=== PATIENT | male | born 1965 | race Caucasian/White ===

== ENCOUNTER 2016-05-06 06:51 | Day surgery (SDC) | payer OTHER ==
[~2016-05-06] VITALS: Ht 193 cm; Wt 126.6 kg
[2016-05-06] MEDS ORDERED: CELEXA40 MG PO (07:03)
[2016-05-06] MEDS ORDERED: XANAX XR1 M1 PO (07:04)
[2016-05-06] MEDS ORDERED: CLARITIN 1010 MG/TAB PO (07:04)
[2016-05-06] MEDS ORDERED: PRINIVIL10 MG PO (07:04)
[2016-05-06] MEDS ORDERED: MULTI VITAMINS1 TAB PO (07:04)
[2016-05-06 07:29] VITALS: BP 112/79; PULSE 70; TEMP 98.2
[2016-05-06 08:50] VITALS: BP 129/82; PULSE 72; TEMP 97.7
[2016-05-06 09:05] VITALS: BP 136/86; PULSE 65
[2016-05-06 09:20] VITALS: BP 131/80; PULSE 66
[2016-05-06 10:22] VITALS: BP 128/86; PULSE 68
== END 2016-05-06 09:40 | disposition home or self-care (01) ==
LOC: SDCO 06:51
DX: Z12.11 Encounter for screening for malignant neoplasm of colon (principal); K64.0 First degree hemorrhoids
CPT/HCPCS: OP; J2250; J3010; J7030

== ENCOUNTER → 2019-04-27 | Outpatient (CLI) | payer BC ==
[~2019-04-27] MED LIST: CELEXA40 MG PO; CLARITIN 1010 MG/TAB PO; MULTI VITAMINS1 TAB PO; PRINIVIL10 MG PO; XANAX XR1 M1 PO
== END ==
LOC: COL.RAD 07:08
DX: R74.8 Abnormal levels of other serum enzymes (principal); K76.0 Fatty (change of) liver, not elsewhere classified

== ENCOUNTER 2020-09-11 10:39 | Emergency (ER) | payer BC ==
[~2020-09-11] VITALS: Ht 195.6 cm; Wt 145.5 kg
[2020-09-11 10:46] VITALS: TEMP 98.1
[2020-09-11] MEDS ORDERED: LIPITOR20 MG PO (11:05)
[2020-09-11 11:15] LABS: ALANINE AMINOTRANSFERASE 48 U/L (4-49); ALBUMIN 4.6 gm/dL (3.5-5.0); ALKALINE PHOSPHATASE 107 U/L (50-136); ANION GAP 8 mmol/L (7-16); AST,SGOT 50 U/L (15-37); BILIRUBIN,TOTAL 0.9 mg/dL (0.0-1.0); BLOOD UREA NITROGEN 13 mg/dL (9-20); CALCIUM 10.1 mg/dL (8.4-10.2); CARBON DIOXIDE 25 mmol/L (22-30); CHLORIDE 104 mmol/L (98-107); CREATININE, serum 1.09 (0.66-1.25); GLUCOSE 154 mg/dL (74-106); POTASSIUM 4.4 mmol/L (3.4-5.0); SODIUM 138 mmol/L (137-145); TOTAL PROTEIN 8.1 gm/dL (6.4-8.2)
[2020-09-11 11:20] LABS: BASO # 0.1 (0.0-0.2); BASO % 0.5 % (0.0-2.0); EOS # 0.2 (0.0-0.7); EOS % 2.1 % (0-4.0); GRAN # 7.4 (1.4-6.5); HEMATOCRIT 47.2 % (42.0-52.0); HEMOGLOBIN 15.9 g/dl (13.5-18.0); LYMPH % 19.7 % (20.0-51.0); MEAN CELL VOLUME 93 fl (80.0-100.0); MEAN CORPUSCULAR HEMOGLOBIN 31 pg (27.0-31.0); MEAN CORPUSCULAR HGB CONC 34 g/dl (33.0-37.0); MEAN PLATELET VOLUME 8.7 fl (7.4-10.4); MONO # 0.5 (0.1-0.6); MONO % 5.2 % (1.7-9.3); PLATELET COUNT 288 K/mm3 (130-400); RED BLOOD COUNT 5.07 M/mm3 (4.20-5.60)
[2020-09-11 11:36] LABS: TROPONIN-I < 0.012 ng/mL (0.000-0.035)
[2020-09-11 13:34] VITALS: BP 133/85; PULSE 88
== END 2020-09-11 13:42 | disposition home or self-care (01) ==
LOC: COL.ER 10:39
PROVIDERS: Emergency Medicine
DX: R07.89 Other chest pain (principal); I10 Essential (primary) hypertension; E78.5 Hyperlipidemia, unspecified; F41.9 Anxiety disorder, unspecified; E66.01 Morbid (severe) obesity due to excess calories; Z82.49 Family history of ischemic heart disease and other diseases of the circulatory system; Z79.899 Other long term (current) drug therapy
CPT/HCPCS: J2060; Q9967

== ENCOUNTER → 2021-10-19 | Outpatient (CLI) | payer BC ==
[~2021-10-19] MED LIST changes: +LIPITOR20 MG PO
== END ==
LOC: COL.RAD 12:33
DX: R91.1 Solitary pulmonary nodule (principal)
CPT/HCPCS: Q9967